=== PATIENT | female | born 2000 | race Caucasian/White ===

== ENCOUNTER 2020-02-22 08:00 | Inpatient (IN) ==
[2020-02-22] MEDS ORDERED: Ondansetron 4 MG/2 ML VIAL IVP PRN ×2 (08:23→12:29)
[2020-02-22] MEDS ORDERED: Famotidine 20 MG/2 ML VIAL IVP PRN (08:23)
[2020-02-22] MEDS ORDERED: *HR* FentaNYL (PF) 100 MCG/2 ML VIAL IVP PRN (08:23)
[2020-02-22] MEDS ORDERED: Naloxone 0.4 MG/ML INJ IVP PRN ×2 (08:23→12:29)
[2020-02-22] MEDS ORDERED: Metoclopramide 10 MG/2 ML VIAL IVP PRN (08:23)
[2020-02-22] MEDS ORDERED: Ringers Solution, Lactated 1,000 ML IVC SCH (08:30)
[2020-02-22 09:00] LABS: Basophils % 0.4 %; Eosinophils # 0.3 K/mcL (0.0-0.6); Eosinophils % 3.4 %; Hematocrit 39.2 % (35.3-44.9); Hemoglobin 13.1 g/dL (11.5-15.4); Lymphocytes # 2.1 K/mcL (0.6-4.6); Lymphocytes % 25.5 %; Mean Corpuscular HGB Conc 33.4 g/dL (31.6-35.5); Mean Corpuscular Volume 92.9 fL (83.0-100.0); Mean Platelet Volume 10.1 fL (9.4-12.4); Monocytes # 0.4 K/mcL (0.0-1.3); Monocytes % 5.5 %; Neutrophils # 5.2 K/mcL (1.6-8.9); Platelet Count 272 K/mcL (140-400); Red Blood Count 4.22 M/mcL (3.82-4.97); Red Cell Distribution Width 12.8 % (11.5-14.5); Segmented Neutrophils % 64.2 %
[2020-02-22 09:13] LABS: Amphetamine Screen,Urine Negative ng/mL (Cutoff=1000); Barbiturate Screen,Urine Negative ng/mL (Cutoff=200); Benzodiazepines Screen,Urine Negative ng/mL (Cutoff=200); Cannabinoid Screen,Urine Negative ng/mL (Cutoff = 50); Cocaine Screen,Urine Negative ng/mL (Cutoff= 300); Opiate Screen,Urine Negative ng/mL (Cutoff=300); Phencyclidine Screen,Urine Negative ng/mL (Cutoff=25)
[2020-02-22] MEDS ORDERED: miSOPROStoL 25 MCG TABLET VG ONE (09:26)
[2020-02-22] MEDS ORDERED: Ropivacaine/PF 0.2% 20 ML VIAL EP ONE (12:29)
[2020-02-22] MEDS ORDERED: EPHEDrine 50 MG/ML VIAL IVP PRN (12:29)
[2020-02-22] MEDS ORDERED: Epidural Premix (fent/bupiv) 110 ML EP SCH (12:30)
[2020-02-22] MEDS ORDERED: Oxytocin 20 units/ LR 1000 mL 20 UNIT/1,000 ML BAG IVC SCH (13:30)
[2020-02-22] MEDS ORDERED: Ropivacaine/PF 0.2% 20 ML VIAL ONE ×2 (15:14→19:36)
[2020-02-23] MEDS ORDERED: Oxytocin 20 units/ LR 1000 mL 20 UNIT/1,000 ML BAG IVC SCH (00:21)
[2020-02-23] MEDS ORDERED: Measles/Mumps/Rubella Vacc 0.5 ML VIAL SQ PRN (00:21)
[2020-02-23] MEDS ORDERED: Lanolin 7 G OINT...G. TP PRN (00:21)
[2020-02-23] MEDS ORDERED: Ibuprofen 600 MG TABLET PO PRN (00:21)
[2020-02-23] MEDS ORDERED: Rho Immune Globulin 1,500 UNIT SYRINGE IM PRN (00:21)
[2020-02-23] MEDS ORDERED: Acetaminophen 325 MG TABLET PO PRN (00:21)
[2020-02-23] MEDS ORDERED: Benzocaine/Menthol 56 GM AEROSOL SPRAY TP PRN (00:21)
[2020-02-23] MEDS ORDERED: *HR* HYDROcodone/Acet 5/325 mg TABLET PO PRN (00:21)
[2020-02-23] MEDS ORDERED: Prenatal Vit/FA 1 EACH TABLET PO SCH (09:00)
[2020-02-23 15:35] VITALS: BP 111/64
== END 2020-02-23 20:30 | disposition home or self-care (01) | DRG 560 ==
LOC: 1NENULAB 08:09 → 1NENUOBS 02-23 00:44
PROVIDERS: ADMIT Advanced Practice Midwife; ATTEND Advanced Practice Midwife